=== PATIENT | female | born 1960 | race Caucasian/White ===

== ENCOUNTER 2021-01-29 22:04 | Inpatient (IN) | payer OTHER ==
[~2021-01-29] VITALS: Ht 170.2 cm; Wt 81.6 kg
[2021-01-29 23:44] VITALS: BP 134/95
[2021-01-29 23:58] LABS: CALCIUM 8.4 mg/dL (8.5-10.1); CREATININE 0.6 mg/dL (0.6-1.0); POTASSIUM 3.8 mmol/L (3.5-5.1)
--- NOTE | 2021-01-30 07:20 | EKG ---
[address] [address] ELECTROCARDIOGRAM REPORT Name: MACO MERRITT Room #: 170-15 ADM IN M.R.#: [id number] Admission: 01/30/21 Attend Phys: Alan Ivey Discharge: Date of : 60 Report #: [id number] [facility] ED Test Date: 2021-01-29 Test Time: 23:10:02 Pat Name: MACO MERRITT Department: Room: 170 Gender: F [employer] Job Titles: poonam : 1960 Requested By: Issa Hernandez Order Number: [id number] MD: Julius Baker Measurements Intervals [place] Rate: 82 P: 29 DE: 181 QRS: 38 QRSD: 81 T: 45 QT: 402 QTc: 470 Interpretive Statements Sinus rhythm No previous ECG available for comparison Electronically Signed On 01-30-2021 7:20:36 CDT by Julius Baker [email or web address] <ELECTRONICALLY SIGNED> By: Julius Baker MD, [facility] 01/30/21 0720 [id number] [id number] Julius Baker MD, FACC /EPI
[2021-01-30 15:38] LABS: HEMATOCRIT 39.8 % (37.0-47.0); HEMOGLOBIN 13.3 gm/dL (12.0-15.0); MCH 28.3 pg (26.0-34.0); MCHC 33.5 g/dL (28.0-37.0); MCV 84.5 fL (80.0-100.0); RBC 4.71 mil/uL (4.20-5.00); RDW 14.5 % (10.5-14.5); WBC 5.7 thou/uL (4.0-11.0)
[2021-01-30 15:45] LABS: CREATININE 0.6 mg/dL (0.6-1.0); POTASSIUM 3.8 mmol/L (3.5-5.1)
[2021-01-30 17:43] VITALS: BP 142/79
[2021-01-30 18:16] VITALS: BP 142/79
[2021-01-30 18:50] LABS: ALBUMIN 3.4 g/dL (3.4-5.0); DIRECT BILIRUBIN < 0.1 mg/dL (<0.1-0.2); SGOT 25 U/L (15-37); SGPT 23 U/L (14-59); TOTAL BILIRUBIN 0.2 mg/dL (0.2-1.0); TOTAL PROTEIN 6.7 g/dL (6.4-8.2)
[2021-01-30 19:41] VITALS: BP 148/96
--- NOTE | 2021-01-31 02:12 | NUR ---
ASSUMED PT CARE AT 1900.ADMISSION HX,EDUCATION AND ASSESSMENT COMPLETED.PT WAS ON 1:1 WITH SITTER AT SHIFT CHANGE,WAS DC AFTER DR ALCARAZ SAW THE PT.PT DENIED ANY SUICIDAL IDEATION,AUDITORY/VISUAL HALLUCINATION ON ADMIT.NICOTINE PATCH TO HER L ARM.PT ON TELE SR.TYLENOL GIVEN AT HS PER PT'S REQUEST FOR BACK PAIN.PT SLEEPING COMFORTABLY ON HER BED AT THIS TIME.CALL LIGHT WITHIN REACH.
[2021-01-31 05:02] LABS: ABSOLUTE NEUTROPHILS 2.4 thou/uL (1.4-8.2); HEMATOCRIT 38.3 % (37.0-47.0); HEMOGLOBIN 13.3 gm/dL (12.0-15.0); MCH 28.8 pg (26.0-34.0); MCHC 34.8 g/dL (28.0-37.0); MCV 82.8 fL (80.0-100.0); MONOCYTES 18.7 % (1.0-8.0); PLATELET COUNT 223 thou/uL (150-400); POLYS 59.3 % (36.0-66.0); RBC 4.63 mil/uL (4.20-5.00); RDW 14.6 % (10.5-14.5); WBC 4.1 thou/uL (4.0-11.0)
[2021-01-31 05:31] LABS: ALBUMIN 3.3 g/dL (3.4-5.0); CALCIUM 7.6 mg/dL (8.5-10.1); CREATININE 0.5 mg/dL (0.6-1.0); MAGNESIUM 1.7 mg/dL (1.8-2.4); PHOSPHORUS 1.4 mg/dL (2.5-4.9); POTASSIUM 3.2 mmol/L (3.5-5.1); TOTAL BILIRUBIN 0.3 mg/dL (0.2-1.0); TOTAL PROTEIN 6.3 g/dL (6.4-8.2)
[2021-01-31 13:48] LABS: ALBUMIN 3.4 g/dL (3.4-5.0); CALCIUM 7.6 mg/dL (8.5-10.1); CREATININE 0.5 mg/dL (0.6-1.0); PHOSPHORUS 1.4 mg/dL (2.6-4.7); POTASSIUM 4.2 mmol/L (3.5-5.1)
[2021-01-31 13:54] LABS: URINE BILIRUBIN NEGATIVE (Negative); URINE BLOOD 1+ (Negative); URINE CLARITY CLEAR; URINE COLOR YELLOW; URINE GLUCOSE-RANDOM* NEGATIVE (Negative); URINE KETONES 1+ (Negative); URINE LEUKOCYTES-REFLEX NEGATIVE (Negative); URINE NITRITE-REFLEX NEGATIVE (Negative); URINE PROTEIN (DIPSTICK) NEGATIVE (Negative); URINE UROBILINOGEN 0.2 E.U./dl (0.2-1.0)
[2021-01-31 14:03] LABS: MUCUS 4-6 Moderate strn/LPF (None Seen)
[2021-01-31 14:04] LABS: AMORPHOUS URATES Few /LPF (None Seen); BACTERIA-REFLEX None Seen /HPF (None Seen); CASTS None Seen /LPF (None Seen); SQUAMOUS 0-3 Few /LPF (0-3); URINE RBC 3-10 Few /HPF (NONE SEEN); URINE WBC-REFLEX None Seen /HPF (0-5)
[2021-01-31 15:55] VITALS: BP 147/93
--- NOTE | 2021-01-31 19:00 | NUR ---
PT ASSESSED AT START OF SHIFT. PT CALM AND VERY COOPERATIVE W/ CARES. DOES TALK INCESSANTLY AND APPOLOGIZES FOR TALKING SO MUCH. C/O NAUSEA THROUGHOUT THE DAY BUT WAS ABLE TO EAT SOME BITES OF FOOD AT EACH MEAL. SODIUM LEVEL CHECKED TWICE THIS SHIFT AND CALLED TO DR. CALVILLO FOR ORDERS. DR. KOEHLER IN TO SEE PT THIS AFTERNOON AND CT ORDERED FOR C/O HEADACHE-CT NEG. H/A SOME BETTER. PT TO TAKE MILK OF MAG FOR CONSTIPATION THIS EVENING. DR. MARTI WILL TRY TO TALK W/ DAUGHTER MARYCRUZ, SHE IS AN WILDLIFE ECOLOGY PROFESSOR AND SPOKESPERSON FOR MOTHER.
[2021-01-31 20:19] VITALS: BP 143/94
--- NOTE | 2021-02-01 03:47 | NUR ---
ASSESSMENT DOCUMENTED.PT BEEN RESTING IN NO ACUTE DISTRESS,SITTER AT BEDSIDE.PT IS A/OX4.VERY PLEASANT AND CO-OPERATIVE W/CARE.VSS.AFEBRILE.ON RA W/O RESP DISTRESS.SR/PVCS ON MONITOR.AMBULATES TO BR WITH SUPERVISION.C/O BACK PAIN THAT IS CONTROLLED WITH PAIN MEDS.NO N/V CONCERNS AT THIS TIME.DENIES SI/HI. NO HALLUCINATIONS REPORTED.PT DENIES ANY NEEDS AT THIS TIME.POC IS TO CONTINUE TO MONITOR ELECTROLYTES.
[2021-02-01 04:54] LABS: ALBUMIN 3.5 g/dL (3.4-5.0); CALCIUM 7.9 mg/dL (8.5-10.1); CREATININE 0.5 mg/dL (0.6-1.0); PHOSPHORUS 1.6 mg/dL (2.5-4.9)
[2021-02-01 05:20] VITALS: BP 139/96
[2021-02-01 08:24] VITALS: BP 143/88
--- NOTE | 2021-02-01 11:09 | NUR ---
PT REPORT IV SET IS BRUISING AND PAINFUL AT 10:45. IV REMOVED BY NURSE JOSE ANTONIO AND APPLIED ICE PATCH OVER THE PREVIOUS IV SITE. D/C SODIUM PHOSPHATE DRIP. PAGED IV TEAM FOR A NEW IV CONSULT AND WILL RE-CONNECT PT TO THE SODIUM PHOSPAHTE AFTER NEW IV INPUTED. WILL KEEP MONITOR PATIENT'S VS AND HEART RHYTME.
--- NOTE | 2021-02-01 12:20 | NUR ---
PT HAS ORDER FOR GOLYTELY FOR BOWEL MOVEMENT WITH 1000 ML SOLUTION BUT CONSTRICT WITH PT'S ORDER OF 1.5 L FLUID RESTRICTION PER DAY. DR. KOEHLER CALLED AT 12:10 PM AND IS NOTICED AND SAID WILL CHANGE THE ORDER. WILL KEEP MONITOR PATIENT'S BM AND WAIT FOR THE NEW ORDER.
[2021-02-01 14:54] VITALS: BP 148/85
--- NOTE | 2021-02-01 19:23 | NUR ---
PT REPORT HAS NOT HAVE BOWEL MOVEMENT IN PAST THREE DAYS AND REPORTED TO DURING THE MORNING ROUND. PT ALSO HAVE FLUID RESTRICTION 1L/DAY. ORDER 1000ML GOLYTELY AND SWITCH TO 1 BOTTLE OF MIRALAX WITH 64 OZ LIQUID. EITHER ORDERS GIVEN TO PATIENT DUE TO THE FLUID RESTRICTION ORDER FOR LOW SODIUM LEVEL. DR KOEHLER NOTIFIED AND TEXT BACK FOR "DULCOLAX SUPPOSITORY" INSTEAD. CHARGE NURSE LUZ NOTIFIED. INPUT ORDER UNDER NAME AND PASS ON OPERATIONS SUPERVISOR 2ND SHIFT NURSE RENEE TO ADMINISTER THE MEDICINE.
[2021-02-01 19:46] VITALS: BP 141/86
[2021-02-02 05:27] LABS: ALBUMIN 3.7 g/dL (3.4-5.0); CALCIUM 7.9 mg/dL (8.5-10.1); CREATININE 0.5 mg/dL (0.6-1.0); PHOSPHORUS 1.7 mg/dL (2.5-4.9); POTASSIUM 3.6 mmol/L (3.5-5.1)
--- NOTE | 2021-02-02 05:29 | NUR ---
Pt. rested quietly at intervals during the night when checked on during frequent rounds. She c/o back pain and po tylenol given (see emar) with some relief noted.
[2021-02-02 05:31] LABS: ABSOLUTE NEUTROPHILS 2.1 thou/uL (1.4-8.2); BASOPHILS 0.7 % (0.0-2.0); EOSINOPHILS 0.4 % (0.0-3.0); HEMATOCRIT 41.2 % (37.0-47.0); LYMPHOCYTES 17.5 % (24.0-44.0); MCH 28.5 pg (26.0-34.0); MCV 83.8 fL (80.0-100.0); MONOCYTES 23.4 % (1.0-8.0); PLATELET COUNT 205 thou/uL (150-400); RBC 4.92 mil/uL (4.20-5.00); RDW 14.4 % (10.5-14.5); WBC 3.6 thou/uL (4.0-11.0)
[2021-02-02 09:15] VITALS: BP 143/93
--- NOTE | 2021-02-02 13:56 | NUR ---
PT ADMITTED RELATED TO SI AND HYPONETREMIA. CM UNDERSTANDS THAT PT WAS SUPPOSED TO BE A DIRECT ADMIT TO [facility] BUT WAS DIVERTED TO MEDICAL FLOOR. 1:1 WAS DC'S TODAY. CM MET WITH PT AT BEDSIDE THIS DAY. PT APPEARED TO BE A&O X4. CM ROLE INTRODUCED. PT INDIATED THAT SHE HAD BEEN LIVING IN A TRAILER IN [facility] [place] [facility]. PT INDICATED SHE IS IN THE PROCESS OF REMODELING THE TRAILER TO BE A HOME FOR HER DOGS AND PLANS TO GET ANOTHER TRAILER TO [place] TO THAT ON HER RENT TO OWN LAND WITH DOG RUNS CONNECTING THE TWO. 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 H&P INDICATED THAT PT HAD BEEN HOTLINED IN LATE DECEMBER AND HAS BEEN TO [facility]BU AT [facility] IN THE RECENT PAST. PT INDICATED HER COUSIN HARRY AND DTR ARE GOOD CONTACTS FOR HER. SHE INDICATED SHE HAD ATARTED TO COMPLETE MEDICAID APPLICATION AT [facility] BUT HASN'T FINISHED IT. SHE INDICATED SHE IS ON DISABILITY AND GETS ABOUT $800 A MONTH. SHE PAYS $125.00 AT THE RENT TO OWN AND WHERE SHE LIVES. SHE INDICATED SHE IS WITHOUT A CARE RIGHT NOW BUT SHOPS ONLINE AND HAS TRANSPORT ARRANGED ONCE A MONTH TO GET A RIDE INTO [place]OWN TO DO [place]UN[place] AND GROCERY SHOP. SHE INDICATED SHE IS INTERESTED IN HAVING [facility] SEE IF THEY CAN COMPLETE AN APPLICATION FOR [place] MEDICAID. SHE ID RECEPTIVE TO COMPLETING A DPOA. FAMILY MEETING TO BE HELD TOMORROW AT 1300. CM FOLLOWING TO ASSIST WITH DC PLANNING.
[2021-02-02 16:10] VITALS: BP 140/82
[2021-02-02 22:02] VITALS: BP 126/91
--- NOTE | 2021-02-03 04:39 | NUR ---
UPON SHIFT ASSESSEMENT, PT AOX4, NO BEHAVIORS OF CONCERN OBSERVED OR NOTED. PT REPORTS 4/10 BACK PAIN. PT RECEIVING PRN PO APAP Q6HR. PT DENIES SOB WHILE ON ROOM AIR. PT TOLERATING PO INTAKE OF FLUIDS AND REGULAR DIET WITHOUT ISSUE, MAINTAINS 1L FLUID RESTRICTION. PT WITHOUT NAUSEA OR EMESIS. PT AMBULATING INDEPENDENTLY IN ROOM AND TO BATHROOM, RESTING IN BED OTHERWISE. FREQUENT REPOSITIONING ENCOURAGED WHILE IN BED, PT NOTED TO SHIFT INDEPENDENTLY. PT EXPRESSES CONCERN FOR SLEEP. ONCALL TRANSIT MAN NOTIFIED, RECEIVED ORDERS FOR 10MG MELATONIN QHS PRN. PT ENCOURAGED TO NOTIFY STAFF FOR ALL NEEDS, CALL LIGHT WITHIN REACH, BED LOCKED IN LOWEST POSITION, FREQUENT MONITORING WILL CONTINUE.
[2021-02-03 08:00] VITALS: BP 158/76
--- NOTE | 2021-02-03 11:19 | NUR ---
ASSUMED CARE OF PT AT 0700 THIS MORNING. PT WAS ADMITTED FOR HYPONATREMIA AND WEAKNESS. PT WAS FOUND TO HAVE LYMPH MASSES WELL. PT IS INDEP AMBULATORY. LUNGS ARE CLEAR IN ALL MCINTOSH, EYES PERRLA, PT IS A/OX4. ASSESSMENT FINDINGS CHARTED AND OTHERWISE UNREMARKABLE. IV IN UPPER LEFT ARM. CALL LIGHT AND OTHER NEEDS ARE WITHIN REACH. MEDS AND TX ARE GIVEN NEEDED AND SCHEDULED.
[2021-02-03 11:32] LABS: HEMATOCRIT 41.2 % (37.0-47.0); HEMOGLOBIN 14.1 gm/dL (12.0-15.0); MCH 28.6 pg (26.0-34.0); MCHC 34.2 g/dL (28.0-37.0); MCV 83.7 fL (80.0-100.0); RBC 4.92 mil/uL (4.20-5.00); RDW 14.2 % (10.5-14.5); WBC 3.5 thou/uL (4.0-11.0)
[2021-02-03 11:40] LABS: ALBUMIN 3.5 g/dL (3.4-5.0); CALCIUM 7.6 mg/dL (8.5-10.1); CREATININE 0.7 mg/dL (0.6-1.0); PHOSPHORUS 1.1 mg/dL (2.6-4.7); POTASSIUM 3.4 mmol/L (3.5-5.1)
--- NOTE | 2021-02-03 14:06 | NUR ---
FAMILY MEETING HELD THIS DAY. HOSPITALIST, PSYC, PSYC STUDENT, CM, AND FAMILY PARTICIPATED. IT WAS INDICATED THAT PT DOENS'T QUALIFY FOR INPATIENT PSYC STAY. CARE TEAM RECOMMENDING THAT PT STAY WIHT FAMILY MORE LOCALLY UPON DC FOR ASSISTANCE AND OVERSIGHT. PT IS AGREEABLE. THEY ARE TRYING TO FIGURE OUT LOGISTICS OF WHERE AND HOW PT WILL GO UPON DC. PT STATING THAT SHE NEEDS TO RETURN TO [facility] TO RETRIVE BELONGINGS. ISSUE WITH TRANSPORT FOR FOLLOW UP APPOINTMENTS AND SUCH. CM TO FOLLOW UP WITH [facility] TO SEE IF THEY CAN ASSIST WITH MEDICAID APPLICATION. CARE TEAM INDICATED PT MAY BE MEDICALLY STABLE TO DC TOMORROW. CM TO FOLLOW UP WITH PT AND FAMILY TO ASSIST WITH DC NEEDS.
[2021-02-03 17:12] VITALS: BP 151/96
[2021-02-03 19:28] VITALS: BP 141/95
--- NOTE | 2021-02-04 05:06 | NUR ---
Pt. took a shower at bedtime last night. She did rest quietly during the night when checked on during frequent rounds. Pt. c/o chronic back pain and ice packs applied with some relief.
[2021-02-04 06:25] LABS: ALBUMIN 3.5 g/dL (3.4-5.0); CALCIUM 8.1 mg/dL (8.5-10.1); CREATININE 0.5 mg/dL (0.6-1.0); PHOSPHORUS 1.6 mg/dL (2.5-4.9); POTASSIUM 3.4 mmol/L (3.5-5.1)
[2021-02-04 07:55] VITALS: BP 132/88
--- NOTE | 2021-02-04 09:40 | NUR ---
DR VARGAS TO [facility] PT TODAY. WILL DISCONTINUE IV AND TELE AND DISCHARGE TO HOME VIA PRIVATE VEHICLE.
[2021-02-04] MEDS ORDERED: SODIUM CHLORI1000 MG PO (11:47)
[2021-02-04] MEDS ORDERED: FOLIC ACID1 MG PO (11:47)
[2021-02-04 14:55] VITALS: BP 132/88
--- NOTE | 2021-02-04 15:02 | NUR ---
IV DISCONTINUED AND PT UNDERSTANDS ALL DISCHARGE ORDERS. MEDICATION GIVEN TO PT. WILL DISCHARGE TO HOME VIA AMBULANCE.
--- NOTE | 2021-02-04 15:11 | NUR ---
CARE TEAM INDICATED THAT PT IS MEDICALLY STABLE TO DC HOME THIS DAY. CM ARRANGED [facility] TO TAKE PT TO HER TRAILER IN [facility] BETWEEN [phone]. CM VOUCHERED MEDS AT THE COST OF TWO MEDS AT AROUND 28.00. PT HAD BEEN GIVEN INFO FOR ONCOLOGY FOLLOW UP. MARIA E SPOKE WITH PT'S DTR AND SHE IS AWARE OF PT'S DC TO [facility] THIS DAY AND WILL FOLLOW UP WITH HER. NO OTHER CM INTERETION INDICATED CARE CLOSED.
--- NOTE | 2021-02-04 16:13 | NUR ---
PT DISCHARGED TO HOME/
--- NOTE | 2021-02-05 21:25 | HC ---
[facility] [place] [address] [address] CONSULTATION Name: MACO MERRITT Room #: 464-P [facility] IN M.R.#: [id number] Admission: 01/30/21 Attend Phys: Regine Benitez MD Discharge: 02/04/21 Date of : 60 Report #: [id number] THIS REPORT FOR: cc: FAM - No family physician/PCP FAM - No family physician/PCP Elaine Villela DO ~ DOC #: [id number] ELAINE Villela DO DATE OF SERVICE: 01/30/2021 INPATIENT PSYCHIATRIC EVALUATION Please note this is going to be a CL evaluation of a medical inpatient, just occurred to me the patient got admitted medically due to hyponatremia. SOURCES OF INFORMATION: Interview with the patient. Chart reviewed. limited records from the hospital in [place], [place]. CHIEF COMPLAINT: Feeling good. HISTORY OF PRESENT ILLNESS: This is a 61-year-old female, single, living in the [place] of [facility]. She was sent to us for suicidal ideation. There are affidavits, however, it came to light when she arrived in ED at [facility] that she had a critically low sodium of 119. The patient had a recent admission in [facility], I believe at [facility]'s unit. It sounds like issues surrounding hyponatremia and delirium or the cause of that. The patient was seen by both myself and my associate professor of psychology student. She reports recent urinary tract infections with low sodium. She states over the past 4 months, she has had three UTIs with a decrease in sodium. Reports when this happens, she gets delirious and believes her daughter is present and other conspiracy theories. Yesterday, she thought her daughter was present and wanted to hurt people and cut all fingers. She no longer believes this. Also, it was reported alleged that the patient made suicidal statements yesterday, which she has no recollection of. Currently, she denies suicidal ideation, homicidal ideation, auditory or visual command-type hallucinations. PAST PSYCHIATRIC HISTORY: Includes history of bipolar 2 disorder diagnosed 5 years ago. Never took meds for though. These episodes have been accompanied by grandiose thinking. She denies history of reduced sleeping or out of control behavior. The patient does report recent psychiatric hospitalization 2 months ago for 3 weeks due to UTI and sodium. She did not take any meds while there. She reports she was told to take salt tablets outpatient and my hunch is fluid restricted as well, but she has been doing neither. She lives alone, has 4 kids that are adults. She is retired. She was a realtor. Interestingly, she smokes [facility] [address] [place] [address] CONSULTATION Name: MACO MERRITT Room #: 464-P [facility] IN M.R.#: [id number] Admission: 01/30/21 Attend Phys: Regine Benitez MD Discharge: 02/04/21 Date of : 60 Report #: [id number] 3-4 packs a day. Denies sleep problems. Denies depression, anxiety or irritability. The patient has a rapid speech noted. She was alert and oriented x3. Recalls 3/3 items immediately, 3/3 after 5 minutes. She got 0 for 5 months of the year backwards. Interestingly, with me she did not know the date, she said today was Tuesday when it was actually Tuesday. FAMILY HISTORY: Not obtained yet. VITAL SIGNS: Temperature 36.4, pulse 89, respirations 16, BP 148/96. CURRENT MEDICATIONS: In a hospital, Lovenox 40 mg subcu at bedtime, sodium chloride 1 gram daily, nicotine transdermal--famotidine 20 mg p.o. b.i.d., cephalexin 250 mg q.i.d., MiraLax, albuterol inhaler p.r.n. She is on normal saline. LABORATORY DATA: Laboratories here at [facility] hematology is normal. H and H 13.3 and 39.8, white count 5.7, platelet count 263. Chemistry has improved this a.m. to a sodium of 120, potassium 3.8, chloride 90, bicarbonate 24, anion gap 6, BUN 9, creatinine 0.6, estimated GFR 102, glucose 97, calcium 8.0, total bilirubin 0.2, direct bilirubin less than 0.1, AST 25, ALT 23, alkaline phosphatase 132, total protein 6.7, albumin 3.4. Vitamin B12 of 397. TSH 0.807. Urinalysis has not been received yet. Urine osmolality pending. COVID-19 serology was negative on the Ferreira test. No radiology done here. PHYSICAL EXAMINATION: Seen in bed upright, IV in place. Gait not tested, in hospital gown. MENTAL STATUS EXAMINATION: This is a well-developed female, appearing stated age. Attention fair. Concentration limited. Speech pushed rate, normal volume and tone, the process is linear and goal directed. Thought content focused on getting better from her hyponatremia condition. Denied SI, HI. Denied auditory, visual, or tactile hallucinations. Memory not formally tested. Oriented to person, place, situation, not fully to time. I should say mood good, congruent, and euthymic. Insight and judgment limited. Fund of knowledge average range. FORMULATION: A 61-year-old female transferred from outside hospital in [place], [place] for suicidal ideation, hyponatremia. The patient found to be critically hyponatremic and is now admitted medically. RECOMMENDATIONS: Continue to treat general medical condition. At this time, I do not see a good role for antipsychotics or mood stabilizers. She is not showing significant symptomatology. The patient will need both general medical [facility] [address] [place] [address] CONSULTATION Name: INOCENTESTEVEMACO PANDEY Room #: 464-P [facility] IN .R.#: [id number] Admission: 01/30/21 Attend Phys: Regine Benitez MD Discharge: 02/04/21 Date of : 60 Report #: [id number] and psychiatric followup with an outpatient. Certainly her poor compliance is a concern and if this continues, it will be reasonable to evaluate for a neurodegenerative process. However, with her delirium, this is a concern. DIAGNOSES: Delirium secondary to general medical condition namely significant hyponatremia, bipolar 2 disorder by history. Time spent on this case is at least 45 minutes, greater than 50% of time was reviewed records, coordination of care. DO KAPIL Cantu/CAROLINA/MAYANK <ELECTRONICALLY SIGNED> By: Elaine Villela DO 02/05/215 56 2037 Elaine Villela DO /nt
== END 2021-02-04 16:16 | disposition home or self-care (01) | DRG 641 ==
LOC: ER 22:04 → 4W 01-30 01:07 → EROBS 01-30 01:07 → 4W 01-30 17:48
PROVIDERS: Emergency Medicine; Hospitalist; Internal Medicine Nephrology; Nurse Practitioner Family; ADMIT Internal Medicine; ATTEND Internal Medicine
DX: E87.1 Hypo-osmolality and hyponatremia (principal); R45.851 Suicidal ideations; N39.0 Urinary tract infection, site not specified; F23 Brief psychotic disorder; F05 Delirium due to known physiological condition; F32.9 Major depressive disorder, single episode, unspecified; Z20.822 Contact with and (suspected) exposure to COVID-19; M19.90 Unspecified osteoarthritis, unspecified site; I10 Essential (primary) hypertension; F17.210 Nicotine dependence, cigarettes, uncomplicated; E87.6 Hypokalemia; E83.42 Hypomagnesemia; Z60.2 Problems related to living alone; J43.9 Emphysema, unspecified; R59.1 Generalized enlarged lymph nodes; E83.39 Other disorders of phosphorus metabolism; K59.00 Constipation, unspecified; E04.1 Nontoxic single thyroid nodule; D35.02 Benign neoplasm of left adrenal gland; E27.8 Other specified disorders of adrenal gland; Z71.6 Tobacco abuse counseling; Z91.19 Patient's noncompliance with other medical treatment and regimen; Z82.49 Family history of ischemic heart disease and other diseases of the circulatory system; Z80.0 Family history of malignant neoplasm of digestive organs
CPT/HCPCS: 10045